=== PATIENT | female | born 1950 | race Caucasian/White ===

== ENCOUNTER 2022-06-22 06:03 | Day surgery (SDC) | payer OTHER, SELFPAY ==
[2022-06-22] VITALS (25 sets, daily range): BP systolic 106–147; BP diastolic 62–115; PULSE 49–94; RESP 14–18; TEMP 35.5–36.7; O2SAT 93–99; BMI 27.3
[2022-06-22] MEDS: ACETAMINOPHEN 500 MG TABLET 1000 MG PO ×3 (06:23→18:53)
[2022-06-22] MEDS: CELECOXIB 200 MG CAPSULE PO ×2 (06:23→21:44)
[2022-06-22] MEDS: OXYCODONE (CR) 10 MG TAB.ER.12H PO (06:23)
[2022-06-22] MEDS: SODIUM CHLORIDE 0.9 % (FLUSH) 10 ML SYRINGE IVF (06:37)
[2022-06-22] MEDS: LACTATED RINGERS 1000 ML 1,000 ML 100 ML IV (06:37)
[2022-06-22] MEDS: MIDAZOLAM HCL 1 MG/ML inj IVP (07:10)
[2022-06-22] MEDS: fentaNYL 100 MCG/2 ML inj IVP (07:10)
--- NOTE | 2022-06-22 07:19 | P.NB_ITS ---
Nerve Block Nerve Block Time Seen by Provider: 07:20 Date Seen: 06/22/22 Type of block requested by surgeon for post-operative analgesia: geniculars Side: right Time out performed: Yes Verification of patient name: Yes Verification of date of : Yes Site marking: site marked Name of person performing procedure: Mat Continuous monitoring Was continuous monitoring of O2 sat, B/P, school lunch monitor, recorded every 15 minutes?: Yes Procedure Checklist: sterile prep, needles and gloves Medications given in 5ml increments after negative aspiration: Ropivicaine %: 0.5 mL: 9 Needle gauge: 25 Patient tolerated procedure well: Yes Block Charges Block Charge (with Pro Fee): Genicular Nerve Block Use of Ultrasound Machine for Block: No
--- NOTE | 2022-06-22 07:19 | W.PM.NB ---
Nerve Block Nerve Block Time Seen by Provider: 07:19 Date Seen: 06/22/22 Type of block requested by surgeon for post-operative analgesia: adductor canal Side: right Time out performed: Yes Verification of patient name: Yes Verification of date of : Yes Site marking: site marked Name of person performing procedure: Mat Continuous monitoring Was continuous monitoring of O2 sat, B/P, residential monitor, recorded every 15 minutes?: Yes Procedure Checklist: sterile prep, needles and gloves Ultrasound guided. Images saved: Yes Medications given in 5ml increments after negative aspiration: Ropivicaine %: 0.5 mL: 20 Needle gauge: 20 Decadron (mg): 10 Precedex (mcg): 25 Patient tolerated procedure well: Yes Additional comments: Needle noted adjacent to nerve Block Charges Block Charge (with Pro Fee): Femoral Nerve Use of Ultrasound Machine for Block: Yes- US Guidance/pain block
--- NOTE | 2022-06-22 07:20 | SUR.PREOP ---
TIME?OUT:?0708 PT/Khushboo MADRID RN/Jeremiah GODOY MDA?VERIFICATION?OF?SURGICAL?SITE,?PROCEDURE,?AND?CONSENT OBTAINED?PRIOR?TO?INVASIVE?PROCEDURE.
[2022-06-22] MEDS: CEFAZOLIN 2 GM in 0.9 % SODIUM CHLORIDE Mini-bag 100 ML IVPB ×3 (07:50→21:45)
[2022-06-22] MEDS: TRANEXAMIC ACID 100 MG/ML INJ 1000 MG IV (07:50)
--- NOTE | 2022-06-22 07:52 | CRLHL7_ITS ---
For Patients: As a result of the Cures Act, medical imaging exams and procedure reports are released immediately into your electronic medical record. You may view this report before your referring provider. If you have questions, please contact your health care provider. Indication: Postop Technique: Two views right knee Comparison: No comparison Findings : Right knee total arthroplasty in satisfactory position. Postoperative soft tissue swelling and gas. Normal alignment. Dictated by Maria G Laboy MD @ 06/22/2022 11:37:24 AM (Electronically Signed)
--- NOTE | 2022-06-22 09:26 | PM.ORPRC ---
Procedure Note Date of procedure: 06/22/22 Procedure: PREOPERATIVE DIAGNOSIS: 1. Right knee osteoarthritis, primary, severe POSTOPERATIVE DIAGNOSIS: 1. Right knee osteoarthritis, primary, severe PROCEDURE: 1. Right total knee arthroplasty SURGEON: Shahab Pandya MD. HELP DESK TECHNICIAN: Robi Mcneal PA-C - Of note, a skilled judicial administrative assistant was critical for this case to aid in patient positioning, tissue retraction, limb manipulation/positioning, and closure. ANESTHESIA: Spinal anesthetic IMPLANTS: DePuy J&J all cemented TKA - Attune PS femur size 6 standard, size 6 tibia, 5 poly spacer, 35 mm patella TOURNIQUET: 90 min at 300 torr EBL: 50 ml COMPLICATIONS: None evident INDICATIONS: The patient is a pleasant 72-year-old female who has experienced severe right knee pain and difficulty bearing weight. Workup included x-rays which revealed severe osteoarthrosis in the knee. Given the deformity, the dysfunction, and the pain, as well as the failure of nonoperative management, recommendation was made for surgery. FINDINGS: Moderate effusion plan the 3rd joint. Full-thickness chondral loss lateral compartment and patellofemoral compartment. Significant chondromalacia medial compartment as well. Degenerative meniscus pathology both compartments. Multiple large loose bodies were also removed (the greatest measuring 35 mm in its greatest length and was severe call). DESCRIPTION OF PROCEDURE: Following a thorough discussion of risks, benefits, and alternatives consent was obtained and the right knee was marked. The patient was brought to the operating room and placed supine on the operating table. Induction of anesthesia was undertaken. 2 g IV Ancef and 1 g tranexamic acid was administered within 1 hr of incision preoperatively. Proper time-out was performed identifying proper patient, site, procedure. The operative extremity was prepped and draped in the appropriate sterile fashion using ChloraPrep after the patient was positioned supine with all bony prominences well padded. A longitudinal, anterior, midline skin incision was made starting approximately 3cm proximal to the superior pole of the patella and advanced distal to the tibial tubercle. A median parapatellar arthrotomy was created. A medial subperiosteal sleeve was created with knife, paul elevator and curved osteotome. The retropatellar fatpad was resected and the synovium in the suprapatellar pouch excised to visualize the anterior femoral cortex. Femoral preparation was performed via an intramedullary guide. Step drill allowed access into the femoral canal. The distal cutting guide was placed with 6 ? of valgus and 12 mm cut on the distal femur due to 20 degree flexion contracture. Femur was sized using a posterior referencing guide in 3? of external rotation which matched posterior condylar axis, epicondylar axis, and Whitesides line. This found have a best fit with the sizing noted above. The 4 in 1 cutting block was then placed, and the distal femur shaped accordingly. The box cut was then created and the trial implant inserted to confirm appropriate fit. We turned our attention to the proximal tibia. Extramedullary guide was utilized for cutting with the goal of being 90 degree cut from the mechanical axis of the tibia in the varus/valgus plane utilizing tibial crest as the primary alignment. Initially a 2 mm resection was performed from the medial tibial plateau. Ultimately, balancing was achieved in both flexion and extension in both varus and valgus. The knee was able to achieve full extension as well comfortably. The patella was initially measured and found have a thickness of 23 mm. It was resected back to approximately 15 mm. It was sized to be a best fit with as noted above. This was drilled, trial placed. All trials were placed and found to have an excellent stability and balance. At this stage, trial implants were removed, the knee was thoroughly irrigated with normal saline, and the cement was mixed. After irrigation, the knee was thoroughly dried, and cement placed, with the real tibial and femoral implants placed along with the patella. Trial poly spacer was placed and confirmed to have excellent range of motion and full extension, and the real poly spacer opened and inserted. All extra cement was removed, and a 3 min Betadine soak performed. Finally, a final irrigation round with normal saline was performed. Closure performed with 0 Vicryl and #0 Stratafix for the quad tendon/retinaculum. 2-0 Vicryl for the subcutaneous and 4-0 Stratafix for subcuticular closure. Dressings were applied and the patient was awoken from anesthesia after the tourniquet deflated and transferred the PACU in stable condition. A skilled judicial administrative assistant was critical for this case to aid in patient positioning, tissue retraction, bone exposure, limb manipulation/positioning, patient safety, and closure. PLAN: 1. Weight bear as tolerated operative extremity. 2. 23 hr perioperative antibiotics. 3. Ice. 4. PT/OT consults for ambulation assistance/mobility education. 5. Social work consult for discharge planning. 6. DVT prophylaxis with at SCDs, Best Hose, and aspirin twice daily.
--- NOTE | 2022-06-22 10:15 | W.ANESCHARGE ---
Anesthesia Charges Start Date/Time Anesthesia Start Date: 06/22/22 Anesthesia Start Time: 07:29 Stop Date/Time Anesthesia Stop Date: 06/22/22 Anesthesia Stop Time: 10:15 Summary Emergency: No Extremes of Age: Over 70-CPT 06128
--- NOTE | 2022-06-22 10:48 | W.ANESCHARGE ---
Anesthesia Charges Start Date/Time Anesthesia Start Date: 06/22/22 Anesthesia Start Time: 07:29 Stop Date/Time Anesthesia Stop Date: 06/22/22 Anesthesia Stop Time: 10:15 Summary Emergency: No Extremes of Age: Over 69-CPT 16214
--- NOTE | 2022-06-22 11:04 | PM.IMCN1 ---
Date of Consult Patient: Magi Patient Consult date: 06/22/22 Requesting Physician: Orthopedics Primary Care Provider: Elizabeth Hennessy MD Consult Narrative Reason for consult: Medical management of comorbidities Narrative: Franny Thapa is a 72 year old female who presented to the hospital today for an elective right TKA. There were no complications during procedure and she tolerated anesthesia well. She has no concerns for the hospitalist staff. Preoperative exam performed with PCP, Dr. Hennessy, on 06/10/2022 and reviewed. Patient's past medical history includes hypertension, hyperlipidemia, CKD, and [id number] DM2. She is not taking any medications for her diabetes. Her most recent A1c was 7.1 (May 2022). She endorses a blood clot behind the knee remotely when saw was on OCPs (unclear if this was a DVT or superficial thrombophlebitis). She has not had any blood clots since, was anticoagulated with aspirin after her right DANIEL in 2020. 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 She lives independently with her in [place]. Their house is multilevel, but she is able to limit steps if needed. She is a nonsmoker, rare alcohol drinker, and has received four COVID vaccines. [facility] Medical History (Updated 06/22/22 @ 11:25 by Natalie Zuñiga MD) Back problem GERD (gastroesophageal reflux disease) Gout History of gout Hyperlipidemia Hypertension Hyposmia Osteoarthritis Primary osteoarthritis of right knee Stage 3a chronic kidney disease Type 2 diabetes mellitus, without long-term current use of insulin Surgical History (Updated 06/22/22 @ 11:19 by Natalie Zuñiga MD) History of lumbar discectomy History of total left knee replacement History of total right hip arthroplasty (10/22/20) History of vaginal hysterectomy Family History (Updated 06/16/22 @ 11:32 by Laisha Ballard RN) Father Cancer Pancreatic cancer Mother Dementia Sister Thyroid cancer Social History Smoking Status: Never smoker Do you use any of these nicotine containing products: None How often do you have a drink containing alcohol: 2-3 times a week Alcohol type: hard liquor How many standard drinks containing alcohol do you have on a typical day: 1 or 2 How often do you have six or more drinks on one occasion: Never AUDIT-C Alcohol total score: 3 Non-prescribed substance use: denies use Caffeine: Yes (iced coffee 1/morning) Meds Home Medications and Allergies Home Medications Medication Instructions Recorded Confirmed Type allopurinol 300 mg tablet 300 mg PO DAILY 06/19/22 06/22/22 History atorvastatin 40 mg tablet (Lipitor) 40 mg PO QHS 06/19/22 06/22/22 History calcium carbonate 600 mg-vitamin 1 tab PO DAILY 06/19/22 06/22/22 History D3 20 mcg (800 unit) chewable tablet (Caltrate 600 plus D) hydrochlorothiazide 12.5 mg tablet 12.5 mg PO DAILY 06/19/22 06/22/22 History lisinopril 2.5 mg tablet 2.5 mg PO DAILY 06/19/22 06/22/22 History loratadine 10 mg tablet (Claritin) 10 mg PO DAILY 06/19/22 06/22/22 History aspirin 81 mg tablet,delayed 81 mg PO DAILY 06/22/22 06/22/22 History release (Adult Low Dose Aspirin) Allergies Allergy/AdvReac Type Severity Reaction Status Date / Time nitrofurantoin Allergy Nausea Verified 06/22/22 06:15 [From Macrobid] metformin Allergy Unknown Uncoded 05/07/22 10:15 Exam Narrative: Exam Narrative: GEN: Alert and oriented, laying comfortably in bed and answering questions appropriately HEENT: Normal external ears, EOMIs bilaterally, no scleral icterus CV: RRR, No concerning murmurs, rubs, or gallops R: LCTA bilaterally without concerning wheezing, rales, or rhonchi Ext: wwp, no concerning edema, wearing Best hose bilaterally Skin: No concerning skin lesions or rashes on exposed skin Neuro: Nonfocal Psych: Appropriate Const: Vital Signs, click to edit/add: Vital Signs - 24 hr 06/22/22 06:35 06/22/22 07:12 06/22/22 07:15 Temperature 98.1 F Pulse Rate 73 68 70 Respiratory Rate 16 16 14 Blood Pressure 138/82 147/115 H 144/92 H Pulse Oximetry 97 98 97 Oxygen Delivery Me thod Room Air Nasal Cannula Nasal Cannula Oxygen Flow Rate 2 2 06/22/22 10:15 06/22/22 10:20 06/22/22 10:40 Temperature 97.2 F L Pulse Rate 70 73 72 Respiratory Rate 16 16 16 Blood Pressure 106/71 107/62 129/87 Pulse Oximetry 95 94 95 Oxygen Delivery Me thod Room Air Room Air Room Air Oxygen Flow Rate 06/22/22 10:30 06/22/22 10:25 06/22/22 10:35 Temperature Pulse Rate 70 71 67 Respiratory Rate 16 16 16 Blood Pressure 109/83 116/75 119/78 Pulse Oximetry 94 94 95 Oxygen Delivery Me thod Room Air Room Air Room Air Oxygen Flow Rate 06/22/22 10:45 06/22/22 10:59 Temperature 96.7 F L Pulse Rate 71 74 Respiratory Rate 16 16 Blood Pressure 129/86 128/80 Pulse Oximetry 95 95 Oxygen Delivery Me thod Room Air Room Air Oxygen Flow Rate Assessment and Plan Assessment and plan (1) Total knee replacement status: Status: Acute (2) Osteoarthritis of right knee: Problem comment: Severe Status: Acute (3) Type 2 diabetes mellitus, without long-term current use of insulin: Status: Acute Assessment and Plan: Accu-Cheks and diabetic diet. (4) Stage 3a chronic kidney disease: Status: Acute (5) Hypertension: Status: Acute (6) History of blood clots: Problem comment: One blood clot remotely while on OCPs, unclear if DVT or superficial. Status: Acute Assessment and Plan: Presumably a DVT, provoked. Patient did well postoperatively after DANIEL in 2020 with aspirin as prophylaxis. Aspirin postoperatively for TKA. Plan - Continue home medications (hold HCTZ tomorrow morning, will restart if lytes and BP stable) - pain management and prophylaxis per orthopedic surgery team (see above re: History of DVT) - anticipate routine postoperative cares at home tomorrow with . Hospitalist team will continue to follow along given above-mentioned comorbidities
--- NOTE | 2022-06-22 14:09 | PC.NURSE ---
Patient received to room at 1050 AM accompanied by two nurses from recovery unit. Patient was conscious on arrival. Dressing appeared dry and clean. V/S checked and recorded as per chart. Denied any pain. Confirmed loss of sensation to the right leg but able to move toes. IV Ringers lactate 1000ml set up. Warm blanket given to keep pt warm and icepack applied to the right knee. Ice cubes given intermittently to moist the moist. Head of bed elevated. Pt was in patient's room and reported that patient vomited twice during physical therapy.
[2022-06-22] MEDS: ONDANSETRON 2 MG/ML inj 4 MG IVP ×2 (14:50→18:52)
[2022-06-22] MEDS: LACTATED RINGERS 1000 ML 1,000 ML 75 ML IV (14:50)
[2022-06-22] MEDS: HYDROmorphone 0.5 mg/0.5 ml inj IVP (15:05)
[2022-06-22] MEDS: OXYCODONE 5 MG TABLET PO ×2 (16:49→19:50)
--- NOTE | 2022-06-22 20:31 | PC.NURSE ---
Patient up to floor at 1050. Awake and alert. reports nausea with previous surgeries. Zofran given. shortly after dilaudid given for pn. - 200cc bile emesis. Pt slowly advanced diet with crackers and jello. IV infiltrated to left wrist. New IV placed to left AC. Oxy 10mg for pain and had some emesis after this as well. Zofran given a second time. in between these episodes, pt happy and talkative, denied issues and reported sudden onset after narcs. up to void this evening. LS CTA. cry cuff on. surgical dressing CDI.
[2022-06-22] MEDS: ATORVASTATIN CALCIUM 40 MG TABLET PO (21:44)
[2022-06-22] MEDS: ASPIRIN 81 MG TABLET EC PO (21:45)
[2022-06-23] MEDS: ACETAMINOPHEN 500 MG TABLET 1000 MG PO ×2 (00:22→06:34)
[2022-06-23] MEDS: ONDANSETRON 2 MG/ML inj 4 MG IVP ×2 (00:25→08:17)
[2022-06-23 02:58] VITALS: BP 139/82; PULSE 85; RESP 18; TEMP 36.4; O2SAT 98
[2022-06-23] MEDS: CEFAZOLIN 2 GM in 0.9 % SODIUM CHLORIDE Mini-bag 100 ML IVPB (06:04)
[2022-06-23 06:47] LABS: Basophils Percent Auto 0.1 % (0.0-3.0); Hematocrit 33.6 % (33.0-51.0); Hemoglobin* 11.1 gm/dL (12.0-16.0); Mean Corpuscular HGB Conc 33 gm/dL (32-36); Mean Corpuscular Hemoglobin 31 pg (26-34); Mean Corpuscular Volume 93 fL (80-100); Monocytes Percent Auto 7.1 % (0.0-11.0); Neutrophils Percent Auto 80.9 % (42.0-72.0); Platelet Count* 244 K/uL (140-440); RDW Coefficient of Variation % 13.5 % (11.5-15.5); Red Blood Count 3.62 m/uL (4.00-5.20); White Blood Count* 11.42 K/uL (4.50-11.00)
[2022-06-23 06:55] LABS: Slide Review Reflex No
[2022-06-23 07:00] VITALS: BP 113/71; PULSE 75; RESP 18; TEMP 36.6; O2SAT 96
[2022-06-23 07:05] LABS: Sodium* 133 mmol/L (135-149)
[2022-06-23 07:06] LABS: Potassium* 4.1 mmol/L (3.6-5.1)
[2022-06-23 07:08] LABS: Creatinine* 0.9 mg/dL (0.5-1.5); Est. Creatinine Clearance* 50.54; Estimated Glomerular Filt Rate 68 ml/min
[2022-06-23 07:09] LABS: Blood Urea Nitrogen* 33 mg/dL (7-30)
--- NOTE | 2022-06-23 08:29 | PM.ORPN ---
Subjective Subjective Date Seen: 06/23/22 Principal diagnosis: Status postop day 1 right total knee arthroplasty Interval history: Patient reports doing well. Acute events postoperative and overnight include nausea and vomiting, which she says is typical for her after anesthesia. That nausea is improving. She will try breakfast this morning. Pain managed with scheduled /PRN medications and ice. DVT prophylaxis 81 mg aspirin by mouth twice daily, bilateral knee high Best stockings, and SCDs. Denies fevers, chills, aches, CP, SOB/GARY, tachycardia, or lightheadedness. Ortho Exam Narrative Exam Narrative: -Patient appears comfortable; no apparent acute distress -Alert and oriented times 3 -Operative knee mildly swollen; soft tissues supple; no ecchymosis; no erythematous streaking Warmth appropriate -Surgical dressing clean, dry, intact; no drainage -Bilateral calfs soft; no significant swelling, edema, tenderness, erythema, discoloration, warmth, or palpable cords -2+ DP/PT pulses, intact dermatomes and myotomes distally (5/5 strength) Const Vital Signs, click to edit/add: Vital Signs - 24 hr 06/22/22 10:15 06/22/22 10:20 06/22/22 10:40 Temperature 97.2 F L Pulse Rate 70 73 72 Pulse Rate [Pulse Oximeter] Respiratory Rate 16 16 16 Blood Pressure 106/71 107/62 129/87 Blood Pressure [Right Arm] Pulse Oximetry 95 94 95 Oxygen Delivery Method Room Air Room Air Room Air Oxygen Flow Rate 06/22/22 10:30 06/22/22 10:25 06/22/22 10:35 Temperature Pulse Rate 70 71 67 Pulse Rate [Pulse Oximeter] Respiratory Rate 16 16 16 Blood Pressure 109/83 116/75 119/78 Blood Pressure [Right Arm] Pulse Oximetry 94 94 95 Oxygen Delivery Method Room Air Room Air Room Air Oxygen Flow Rate 06/22/22 10:45 06/22/22 10:59 06/22/22 11:04 Temperature 96.7 F L 97 F L Pulse Rate 71 74 Pulse Rate [Pulse Oximeter] Respiratory Rate 16 16 16 Blood Pressure 129/86 128/80 Blood Pressure [Right Arm] 122/102 H Pulse Oximetry 95 95 97 Oxygen Delivery Method Room Air Room Air Room Air Oxygen Flow Rate 06/22/22 11:45 06/22/22 11:10 06/22/22 11:30 Temperature 97.1 F L 96.9 F L 96.9 F L Pulse Rate Pulse Rate [Pulse Oximeter] 94 Respiratory Rate 16 16 16 Blood Pressure Blood Pressure [Right Arm] 116/76 120/78 112/77 Pulse Oximetry 95 96 97 Oxygen Delivery Method Room Air Room Air Room Air Oxygen Flow Rate 06/22/22 12:00 06/22/22 12:30 06/22/22 13:30 Temperature 97.2 F L 96.7 F L 95.9 F L Pulse Rate Pulse Rate [Pulse Oximeter] 67 62 49 L Respiratory Rate 16 16 16 Blood Pressure Blood Pressure [Right Arm] 110/82 119/84 125/74 Pulse Oximetry 96 99 96 Oxygen Delivery Method Room Air Room Air Room Air Oxygen Flow Rate 06/22/22 14:30 06/22/22 15:00 06/22/22 15:30 Temperature 95.9 F L 96.7 F L Pulse Rate Pulse Rate [Pulse Oximeter] 75 79 Respiratory Rate 16 18 18 Blood Pressure Blood Pressure [Right Arm] 121/99 H 140/85 H Pulse Oximetry 97 94 Oxygen Delivery Method Room Air Room Air Oxygen Flow Rate 0 06/22/22 19:00 06/22/22 16:30 06/22/22 22:41 Temperature 97.9 F 97.9 F Pulse Rate Pulse Rate [Pulse Oximeter] 81 81 Respiratory Rate 18 18 18 Blood Pressure Blood Pressure [Right Arm] 140/81 H 137/87 Pulse Oximetry 97 93 Oxygen Delivery Method Room Air Room Air Oxygen Flow Rate 0 06/22/22 23:00 06/23/22 02:58 Temperature 97.8 F 97.6 F Pulse Rate Pulse Rate [Pulse Oximeter] 81 85 Respiratory Rate 18 18 Blood Pressure Blood Pressure [Right Arm] 127/74 139/82 Pulse Oximetry 96 98 Oxygen Delivery Method Room Air Room Air Oxygen Flow Rate Assessment and Plan Assessment and plan (1) Total knee replacement status: Problem details: POD 1 right total knee arthroplasty Status: Acute (2) Osteoarthritis of right knee: Problem details: Severe Status: Acute (3) Type 2 diabetes mellitus, without long-term current use of insulin: Status: Acute (4) Stage 3a chronic kidney disease: Status: Acute (5) Hypertension: Status: Acute (6) History of blood clots: Problem details: One blood clot remotely while on OCPs, unclear if DVT or superficial. Was placed on ASA for her last knee replacement. Status: Acute Plan - Complete 23 hour perioperative antibiotics. - PT/OT consult for education and assistance. - Social work consult for discharge planning - Prescribed analgesics as needed - DVT prophylaxis: 81 mg aspirin by mouth twice daily, bilateral knee high Best Hose stockings and SCDs - Anticipation is for discharge to home 06/23/2022 once the patient remains medically stable, pain is controlled, and they are safe with mobilization.
--- NOTE | 2022-06-23 08:35 | P.DS_ITS ---
DS: Providers Provider Date Seen: 06/23/22 Date of admission: med/surg recovery 06/22/22 Primary care physician: Elizabeth Hennessy MD Consults: 06/22/22 10:57 Consult to Occupational Therapy [CONS] Routine Comment: Reason(s) for OT Consult:: ADLs Prior to Discharge Any Restrictions?:: See Comment Comment: See nursing activity order for any restrictions. Consult to Physical Therapy [CONS] Routine Comment: Ambulate in the arellano today. Reason(s) for PT Consult:: TKA TX Protocol POD#0 Any Restrictions?:: See Comment Comment: See nursing activity order for any restrictions. Consult to Physician [CONS] Routine Comment: Consulting Provider: Hospitalists Has provider been notified: No Consult to Civil Cadd Technician [CONS] Routine Comment: Reason for Consult:: Discharge Planning Needs Attending Physician on discharge: Shahab Pandya MD Date of Discharge: 06/23/22 DS: Diagnosis Discharge Diagnosis (1) Total knee replacement status: Status: Acute (2) Osteoarthritis of right knee: Status: Acute Problem details: Severe DS: Summary Hospital Course Hospital Course: The patient has a history of right knee osteoarthritis, primary, severe. After appropriate preoperative evaluation, the patient underwent right total knee arthroplasty. Postoperatively given anticoagulation for deep vein thrombosis prophylaxis, 81 mg aspirin by mouth twice daily.. They progressed to PT/OT and were felt ready and prepared for discharge to home with appropriate pain medication and anticoagulation medications. Status at Discharge Functional status at discharge: uses cane/walker Overall status at discharge: patient is progressing back to baseline Time Spent with Patient Time attestation: Total time spent providing and/or coordinating discharge services: Time spent: Less than 30 minutes Exam Const: Vital Signs, click to edit/add: Vital Signs - 24 hr 06/22/22 10:15 06/22/22 10:20 06/22/22 10:40 Temperature 97.2 F L Pulse Rate 70 73 72 Pulse Rate [Pulse Oximeter] Respiratory Rate 16 16 16 Blood Pressure 106/71 107/62 129/87 Blood Pressure [Ri ght Arm] Pulse Oximetry 95 94 95 Oxygen Delivery Me thod Room Air Room Air Room Air Oxygen Flow Rate 06/22/22 10:30 06/22/22 10:25 06/22/22 10:35 Temperature Pulse Rate 70 71 67 Pulse Rate [Pulse Oximeter] Respiratory Rate 16 16 16 Blood Pressure 109/83 116/75 119/78 Blood Pressure [Ri ght Arm] Pulse Oximetry 94 94 95 Oxygen Delivery Me thod Room Air Room Air Room Air Oxygen Flow Rate 06/22/22 10:45 06/22/22 10:59 06/22/22 11:04 Temperature 96.7 F L 97 F L Pulse Rate 71 74 Pulse Rate [Pulse Oximeter] Respiratory Rate 16 16 16 Blood Pressure 129/86 128/80 Blood Pressure [Ri ght Arm] 122/102 H Pulse Oximetry 95 95 97 Oxygen Delivery Me thod Room Air Room Air Room Air Oxygen Flow Rate 06/22/22 11:45 06/22/22 11:10 06/22/22 11:30 Temperature 97.1 F L 96.9 F L 96.9 F L Pulse Rate Pulse Rate [Pulse Oximeter] 94 Respiratory Rate 16 16 16 Blood Pressure Blood Pressure [Ri ght Arm] 116/76 120/78 112/77 Pulse Oximetry 95 96 97 Oxygen Delivery Me thod Room Air Room Air Room Air Oxygen Flow Rate 06/22/22 12:00 06/22/22 12:30 06/22/22 13:30 Temperature 97.2 F L 96.7 F L 95.9 F L Pulse Rate Pulse Rate [Pulse Oximeter] 67 62 49 L Respiratory Rate 16 16 16 Blood Pressure Blood Pressure [Ri ght Arm] 110/82 119/84 125/74 Pulse Oximetry 96 99 96 Oxygen Delivery Me thod Room Air Room Air Room Air Oxygen Flow Rate 06/22/22 14:30 06/22/22 15:00 06/22/22 15:30 Temperature 95.9 F L 96.7 F L Pulse Rate Pulse Rate [Pulse Oximeter] 75 79 Respiratory Rate 16 18 18 Blood Pressure Blood Pressure [Ri ght Arm] 121/99 H 140/85 H Pulse Oximetry 97 94 Oxygen Delivery Me thod Room Air Room Air Oxygen Flow Rate 0 06/22/22 19:00 06/22/22 16:30 06/22/22 22:41 Temperature 97.9 F 97.9 F Pulse Rate Pulse Rate [Pulse Oximeter] 81 81 Respiratory Rate 18 18 18 Blood Pressure Blood Pressure [Ri ght Arm] 140/81 H 137/87 Pulse Oximetry 97 93 Oxygen Delivery Me thod Room Air Room Air Oxygen Flow Rate 0 06/22/22 23:00 06/23/22 02:58 06/23/22 07:00 Temperature 97.8 F 97.6 F 97.9 F Pulse Rate Pulse Rate [Pulse Oximeter] 81 85 75 Respiratory Rate 18 18 18 Blood Pressure Blood Pressure [Ri ght Arm] 127/74 139/82 113/71 Pulse Oximetry 96 98 96 Oxygen Delivery Me thod Room Air Room Air Room Air Oxygen Flow Rate 0 06/23/22 07:00 Temperature Pulse Rate Pulse Rate [Pulse Oximeter] 75 Respiratory Rate 18 Blood Pressure Blood Pressure [Ri t Arm] Pulse Oximetry Oxygen Delivery Me thod Oxygen Flow Rate DS: Data Data Completed and Pending Labs on day of discharge: Labs from last 24 hours 06/23/22 06/23/22 06:01 06:01 WBC 11.42 H RBC 3.62 L Hgb 11.1 L Hct 33.6 MCV 93 MCH 31 MCHC 33 RDW Coeff of Nico 13.5 Plt Count 244 Neut % (Auto) 80.9 H Lymph % (Auto) 11.0 L [place] % (Auto) 7.1 Eos % (Auto) 0.0 Baso % (Auto) 0.1 Neut # (Auto) 9.20 H Lymph # (Auto) 1.30 [place] # (Auto) 0.80 Eos # (Auto) 0.00 Baso # (Auto) 0.00 Abs Immat Gran (auto) 0.10 Sodium 133 L Potassium 4.1 BUN 33 H Creatinine 0.9 Estimated Creat Clear 50.54 Estimated GFR 68 Discharge Plan Discharge Disposition: Home, Self-Care Discharging Surgeon: Shahab Pandya Follow-Up Appointment: 1 week follow up with [facility] Prescriptions: New sennosides-docusate sodium [Senna-S] 8.6-50 mg tablet 1 - 4 tab-cap PO BID PRN (Reason: constipation) Qty: 60 0RF Rx Instructions: Hold medication if experiencing loose stools. aspirin 81 mg tablet,delayed release (DR/EC) 81 mg PO BID Qty: 60 0RF Rx Instructions: Medication to help prevent blood clots postoperatively; take TWICE daily. celecoxib 100 mg capsule 100 mg PO BID Qty: 60 0RF acetaminophen 500 mg capsule 500 - 1,000 mg PO Q6H MDD 4000mg PRNQty: 100 0RF oxycodone 5 mg tablet 2.5 - 5 mg PO Q4-6H MDD 6 PRN (Reason: pain) Qty: 42 0RF Rx Instructions: Take as needed for postop pain: 2.5mg mild pain, 5mg moderate-severe pain; wean as tolerated. No Action allopurinol 300 mg tablet 300 mg PO DAILY atorvastatin [Lipitor] 40 mg tablet 40 mg PO QHS Caltrate 600 plus D 600 mg-20 mcg (800 unit) tablet,chewable 1 tab PO DAILY hydrochlorothiazide 12.5 mg tablet 12.5 mg PO DAILY lisinopril 2.5 mg tablet 2.5 mg PO DAILY loratadine [Claritin] 10 mg tablet 10 mg PO DAILY aspirin [Adult Low Dose Aspirin] 81 mg tablet,delayed release (DR/EC) 81 mg PO DAILY Activity Level: Activity as Tolerated, Weight Bearing as Tolerated, Use Cane and Use Walker Activity Detail: Wound: ?Do not remove original dressing; we will remove this at first postop visit in 1 week. Only remove dressing if integrity is in question. ?No immersing wound in water; showering okay; light scrub with your hand and body soap, rinse, dab dry ?Sutures are under the skin, will dissolve; allow surgical glue to come off naturally; do not scrub the wound or apply ointments/lotions ?Call our office with any redness that streaks, excessive drainage from the wound, or wound gapping. Ice/Elevate: ?Ice as needed for swelling and discomfort (cryocuff or ice pack); elevate frequently above the heart CHERYL socks: ?Wear for 1 month, remove for 1 hour 3 times per day ?These are frustrating to take on/off, but are important for blood clot prevention for 1 month after surgery Blood Clot Prevention (DVT): ?Medication: 81 mg aspirin by mouth twice daily (1 month) Driving: ?Do not drive while taking narcotic pain medication ?Anticipate 4-6 weeks no driving if operative leg is driving leg Dental: ?No elective dental work for 6 months post-op. If there is an urgent/emergent dental need, contact our office for an antibiotic prescription. Smoking/Alcohol: ?Do not smoke; do no drink alcohol especially when taking postoperative oral narcotic medication Seek Care from you Primary Care Provider if you experience the following issues in the postoperative phase and beyond: ?Bacterial infections such as: pneumonia, bacterial skin infection (cellulitis), UTI, high fever, chills unrelated to the operative body part - call your primary care physician urgently for treatment in hopes to protect your health and the metal implant. Referrals: ?PT, OT per patient preference - evaluate treat total knee arthroplasty protocol (gait training, ROM, ADLs) Follow up: ?Ortho surgeon follow-up in 6 weeks; repeat radiographs three views operative knee ?PA-C visit in 1 week *If there are any acute concerns regarding your surgery, please call our orthopedic clinic ([phone]) Discharge Diet: Diabetic Diet Detail: Progress as tolerated Patient Instructions: Surgical Site Infections (DC) Forms: Work/Release Restrictions Follow-up: Elizabeth Hennessy MD [Primary Care Provider] - Discharge Orders: Discharge Order (Routine); Ordered 06/23/22 Ordered By: Robi Mcneal
[2022-06-23] MEDS: OXYCODONE 5 MG TABLET PO ×2 (08:55→12:10)
[2022-06-23] MEDS: SENNOSIDES 1 TAB TABLET 2 TAB PO (08:55)
[2022-06-23] MEDS: CELECOXIB 200 MG CAPSULE PO (08:55)
[2022-06-23] MEDS: allopurinoL 300 MG TABLET PO (08:56)
[2022-06-23] MEDS: lisinopriL 5 MG TABLET 2.5 MG PO (08:56)
[2022-06-23] MEDS: ASPIRIN 81 MG TABLET EC PO (08:56)
[2022-06-23] MEDS: LORATADINE 10 MG TABLET PO (08:56)
--- NOTE | 2022-06-23 10:47 | PC.SOCIAL ---
Met with pt. to discuss discharge plans. Pt. has a 4 story home but plans to stay on the main level with family room, bedroom, and bath all on one level with 6 stairs to enter. Pt. states her spouse is in good health and will assist as needed at home. Pt. does not feel she will need additional resources for discharge but is aware she can contact foster care social worker if she needs additional resources for discharge.
--- NOTE | 2022-06-23 11:01 | P.DS_ITS ---
DS: Providers Provider Date Seen: 06/23/22 Primary care physician: Elizabeth Hennessy MD Admitting Clinician: Dr. Martínez Consults: Physical and Occupational Therapy Hospitalist team for management of comorbidities Attending Physician on discharge: Shahab Pandya MD Date of Discharge: 06/23/22 DS: Diagnosis Discharge Diagnosis (1) Total knee replacement status: Status: Acute (2) Osteoarthritis of right knee: Status: Acute Problem details: Severe (3) History of blood clots: Status: Acute Problem details: One blood clot remotely while on OCPs, unclear if DVT or superficial. Was placed on ASA for her last knee replacement. (4) Type 2 diabetes mellitus, without long-term current use of insulin: Status: Acute (5) Hypertension: Status: Acute DS: Summary Hospital Course Hospital Course: Franny was admitted for an elective right TKA on 06/22. Patient did well postoperatively and comorbidities remained stable. No changes were made to home medications upon discharge (with the exception of doubling her aspirin dose). Prophylaxis and pain management per Orthopedic surgery team. Patient will be discharged home with routine follow-up with therapies, orthopedic surgery, and PCP. Time Spent with Patient Time attestation: Total time spent providing and/or coordinating discharge services: Time spent: Less than 30 minutes Exam Narrative: Exam Narrative: Patient is sitting comfortably in bedside chair, speaking in full sentences. She is breathing comfortably, no concerning skin findings on exposed skin. She is wearing Cheryl hose and no extremity abnormalities are noted. Const: Vital Signs, click to edit/add: Vital Signs - 24 hr 06/22/22 11:04 06/22/22 11:45 06/22/22 11:10 Temperature 97 F L 97.1 F L 96.9 F L Pulse Rate [Pulse Oximeter] 94 Respiratory Rate 16 16 16 Blood Pressure [Ri ght Arm] 122/102 H 116/76 120/78 Pulse Oximetry 97 95 96 Oxygen Delivery Me thod Room Air Room Air Room Air Oxygen Flow Rate 06/22/22 11:30 06/22/22 12:00 06/22/22 12:30 Temperature 96.9 F L 97.2 F L 96.7 F L Pulse Rate [Pulse Oximeter] 67 62 Respiratory Rate 16 16 16 Blood Pressure [Ri ght Arm] 112/77 110/82 119/84 Pulse Oximetry 97 96 99 Oxygen Delivery Me thod Room Air Room Air Room Air Oxygen Flow Rate 06/22/22 13:30 06/22/22 14:30 06/22/22 15:00 Temperature 95.9 F L 95.9 F L Pulse Rate [Pulse Oximeter] 49 L 75 Respiratory Rate 16 16 18 Blood Pressure [Ri ght Arm] 125/74 121/99 H Pulse Oximetry 96 97 Oxygen Delivery Me thod Room Air Room Air Oxygen Flow Rate 06/22/22 15:30 06/22/22 19:00 06/22/22 16:30 Temperature 96.7 F L 97.9 F 97.9 F Pulse Rate [Pulse Oximeter] 79 81 81 Respiratory Rate 18 18 18 Blood Pressure [Ri ght Arm] 140/85 H 140/81 H 137/87 Pulse Oximetry 94 97 93 Oxygen Delivery Me thod Room Air Room Air Room Air Oxygen Flow Rate 0 0 06/22/22 22:41 06/22/22 23:00 06/23/22 02:58 Temperature 97.8 F 97.6 F Pulse Rate [Pulse Oximeter] 81 85 Respiratory Rate 18 18 18 Blood Pressure [Ri ght Arm] 127/74 139/82 Pulse Oximetry 96 98 Oxygen Delivery Me thod Room Air Room Air Oxygen Flow Rate 06/23/22 07:00 06/23/22 07:00 Temperature 97.9 F Pulse Rate [Pulse Oximeter] 75 75 Respiratory Rate 18 18 Blood Pressure [Ri ght Arm] 113/71 Pulse Oximetry 96 Oxygen Delivery Me thod Room Air Oxygen Flow Rate 0 DS: Data Data Completed and Pending Labs on day of discharge: Labs from last 24 hours 06/23/22 06/23/22 06:01 06:01 WBC 11.42 H RBC 3.62 L Hgb 11.1 L Hct 33.6 MCV 93 MCH 31 MCHC 33 RDW Coeff of Nico 13.5 Plt Count 244 Neut % (Auto) 80.9 H Lymph % (Auto) 11.0 L [place] % (Auto) 7.1 Eos % (Auto) 0.0 Baso % (Auto) 0.1 Neut # (Auto) 9.20 H Lymph # (Auto) 1.30 [place] # (Auto) 0.80 Eos # (Auto) 0.00 Baso # (Auto) 0.00 Abs Immat Gran (auto) 0.10 Sodium 133 L Potassium 4.1 BUN 33 H Creatinine 0.9 Estimated Creat Clear 50.54 Estimated GFR 68 Discharge Plan Discharge Disposition: Home, Self-Care Discharging Surgeon: Shahab Pandya Follow-Up Appointment: 1 week follow up with [facility] Prescriptions: New sennosides-docusate sodium [Senna-S] 8.6-50 mg tablet 1 - 4 tab-cap PO BID PRN (Reason: constipation) Qty: 60 0RF Rx Instructions: Hold medication if experiencing loose stools. aspirin 81 mg tablet,delayed release (DR/EC) 81 mg PO BID Qty: 60 0RF Rx Instructions: Medication to help prevent blood clots postoperatively; take TWICE daily. celecoxib 100 mg capsule 100 mg PO BID Qty: 60 0RF acetaminophen 500 mg capsule 500 - 1,000 mg PO Q6H MDD 4000mg PRNQty: 100 0RF oxycodone 5 mg tablet 2.5 - 5 mg PO Q4-6H MDD 6 PRN (Reason: pain) Qty: 42 0RF Rx Instructions: Take as needed for postop pain: 2.5mg mild pain, 5mg moderate-severe pain; wean as tolerated. Continued allopurinol 300 mg tablet 300 mg PO DAILY atorvastatin [Lipitor] 40 mg tablet 40 mg PO QHS Caltrate 600 plus D 600 mg-20 mcg (800 unit) tablet,chewable 1 tab PO DAILY hydrochlorothiazide 12.5 mg tablet 12.5 mg PO DAILY lisinopril 2.5 mg tablet 2.5 mg PO DAILY loratadine [Claritin] 10 mg tablet 10 mg PO DAILY Discontinued aspirin [Adult Low Dose Aspirin] 81 mg tablet,delayed release (DR/EC) 81 mg PO DAILY Activity Level: Activity as Tolerated, Weight Bearing as Tolerated, Use Cane and Use Walker Activity Detail: Wound: ?Do not remove original dressing; we will remove this at first postop visit in 1 week. Only remove dressing if integrity is in question. ?No immersing wound in water; showering okay; light scrub with your hand and body soap, rinse, dab dry ?Sutures are under the skin, will dissolve; allow surgical glue to come off naturally; do not scrub the wound or apply ointments/lotions ?Call our office with any redness that streaks, excessive drainage from the wound, or wound gapping. Ice/Elevate: ?Ice as needed for swelling and discomfort (cryocuff or ice pack); elevate frequently above the heart CHERYL socks: ?Wear for 1 month, remove for 1 hour 3 times per day ?These are frustrating to take on/off, but are important for blood clot prevention for 1 month after surgery Blood Clot Prevention (DVT): ?Medication: 81 mg aspirin by mouth twice daily (1 month) Driving: ?Do not drive while taking narcotic pain medication ?Anticipate 4-6 weeks no driving if operative leg is driving leg Dental: ?No elective dental work for 6 months post-op. If there is an urgent/emergent dental need, contact our office for an antibiotic prescription. Smoking/Alcohol: ?Do not smoke; do no drink alcohol especially when taking postoperative oral narcotic medication Seek Care from you Primary Care Provider if you experience the following issues in the postoperative phase and beyond: ?Bacterial infections such as: pneumonia, bacterial skin infection (cellulitis), UTI, high fever, chills unrelated to the operative body part - call your primary care physician urgently for treatment in hopes to protect your health and the metal implant. Referrals: ?PT, OT per patient preference - evaluate treat total knee arthroplasty protocol (gait training, ROM, ADLs) Follow up: ?Ortho surgeon follow-up in 6 weeks; repeat radiographs three views operative knee ?PAOlvinC visit in 1 week *If there are any acute concerns regarding your surgery, please call our orthopedic clinic ([phone]) Discharge Diet: Diabetic Diet Detail: Progress as tolerated Patient Instructions: Acetaminophen (By mouth), Aspirin (By mouth), Oxycodone, Rapid Release (By mouth), Celecoxib (By mouth), Senna (By mouth), Knee Replacement (DC) Forms: Work/Release Restrictions Follow-up: Angela Richter PA-C [Physician Metal Furniture Assembly Supervisor] - 06/30/22 1:00 pm ([facility]. [phone]) Elizabeth Hennessy MD [Primary Care Provider] - Discharge Orders: Discharge Order (Routine); Ordered 06/23/22 Ordered By: Robi Mcneal
--- NOTE | 2022-06-23 14:27 | PC.NURSE ---
d/c instructions reviewed with patient. surgical dressing CDI. oxy given prior to d/c. pt denied any further questions. IV removed and belongings form reviewed and signed. pt d/c'd around 1130 from m/s floor.
== END 2022-06-23 11:30 | disposition home or self-care (01) ==
LOC: OR 06:04 → MEDSURG 06:08
PROVIDERS: PCP Family Medicine; Visit Provider Orthopaedic Surgery Sports Medicine
PROC: (CPT 27447; principal; 2022-06-22 07:30)
DX: M17.11 Unilateral primary osteoarthritis, right knee (principal); N18.31 Chronic kidney disease, stage 3a; I12.9 Hypertensive chronic kidney disease with stage 1 through stage 4 chronic kidney disease, or unspecified chronic kidney disease; E11.22 Type 2 diabetes mellitus with diabetic chronic kidney disease; Z86.718 Personal history of other venous thrombosis and embolism; E78.5 Hyperlipidemia, unspecified
CPT/HCPCS: 27447; 01402; 01480; 36415; 64447; 64454; 73560; 76942; 82565; 82947; 84132; 84295; 84520; 85025; 97110; 97116; 97161; 97165; 97530; 97535; 99100; A9270; C1776; J0690; J1100; J1170; J2250; J2405; J2704; J2795; J3010; J7120

== ENCOUNTER 2022-08-03 11:00 | Outpatient (RCR) | payer OTHER, SELFPAY ==
--- NOTE | 2022-06-11 14:36 | PT.OPE ---
PT [place] [facility] Eval PT [facility] Eval Start: 06/11/22 10:03 Freq: Status: Active Protocol: Document 06/11/22 10:29 LSL (Rec: 06/11/22 10:47 LSL [id number]) E-signed By Mary Veloz PT Physical Therapy Outpatient Evaluation Insurance Information Insurance Name Medicare B Insurance Information/Comments [employer] Medical Diagnosis R knee primary OA, pre-post op R TKA Treating Diagnosis pain, weakness, impaired ROM, impaired mobility Referring MD Pandya Subjective Subjective Pt. report she doesn't have a significant amount of pain, but a fair amount of joint range deficit that is impacting her ability to walk. PMH: L TKA 14 y/a, spinal surgery 2004 with resultant nerve damage in L leg, R DANIEL 2020 with femoral fracture 2 weeks after surgery Pain Comments 12/28 Date of Last Physician Visit 05/12/22 Date of Surgery (If applicable) 06/22/22 Current Work Status Retired Precautions Weight Bearing Status Full Weight Bearing Therapy Limitations/Systems Review Not Limited Objective Range of Motion AROM 0/25/124 Strength R quads 5-/5, HS 5/5 Swelling 2 above MP 41.5 cm joint line 38 cm 6 below MP 36.5 cm Balance & Gait impaired in SLB B L>R, impaired gait due to extension deficit causing R limb to be shorter. She lacks about 5 degrees on the L at baseline today and 25 on R. Assessment Assessment/Impression Pt. is a 72 y/o female who presents with significant ROM deficit, atrophy of the quads and gait impairment due to the ROM deficit before her knee surgery. She is familiar with joint replacement surgery and seems prepared and equipped to go through it again. She will benefit from PT to improve her ROM, decrease pain and swelling, improve her strength and ambulation ability using therex, manual therapy, NM re-ed, gait training and modalities prn. Primary Functional Limitations walking, stairs Plan of Care Rehabilitation Potential Excellent Physical Therapy Goals SHORT TERM GOALS: (2-3 weeks) 1. Pt. to have 100 degrees of flexion to assist in getting in and out of her car. 2. Pt. able to complete a QS to stabilize her leg when getting in and out of bed. 3. Pt. able to don/doff socks and shoes. 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 Pt. able to ambulate up to 1 mile with pain less than 2/ 10. 2. Pt. able to ascend and descend 12 stairs to move between floors in her home. 3. Pt. able to squat to get things out of low cabinets. Coordination/Communication With Referral Source Treatment Plan/Direct Interventions Electrical Stimulation,Ice/ Cold/Vasopneumatic,Joint Mobilization,Manual Therapy, Neuromuscular Re-ed,Self-Care/ Home Management,Therapeutic Exercises Frequency/Duration 2x/week 8 weeks Patient Will Be Discharged From Therapy Completion of LTG(s),Skills Plateau,Independent w/HEP, Independently Progressing Evaluation Billing Untimed Code Treatment Minutes 45 PT Eval No Charge No Complexity Low Certification Information Physician Comment/Change Comment or Changes Physician NPI Number #
== END 2022-08-25 09:20 | disposition home or self-care (01) ==
PROVIDERS: Visit Provider Orthopaedic Surgery Sports Medicine
DX: M17.11 Unilateral primary osteoarthritis, right knee (principal); Z51.89 Encounter for other specified aftercare
CPT/HCPCS: 97016; 97110; 97112; 97140; 97161; 97164

== ENCOUNTER 2023-03-09 09:10 | Outpatient (CLI) | payer OTHER, SELFPAY | END 2023-03-09 09:11 | disposition home or self-care (01) | PROVIDERS: PCP Family Medicine; Visit Provider Family Medicine | DX: M54.16 Radiculopathy, lumbar region (principal); M51.36 Other intervertebral disc degeneration, lumbar region | CPT/HCPCS: 64483; J1100; Q9966 ==

== ENCOUNTER 2023-06-01 09:08 | Outpatient (CLI) | payer OTHER, SELFPAY ==
--- OUTSIDE RECORDS SUMMARY | 2023-06-01 09:11 | XMS_ITS | Continuity of Care Document ---
Author Name Unknown Organization [facility] Address [address] [place] [address] Phone Care Team Providers Care Lye Machine Operator Name Role Phone Varsha Foreman MD Unavailable Unavailable Procedures Procedure Date OFFICE/OUTPATIENT VISIT EST Phone OFFICE/OUTPATIENT VISIT EST Phone OFFICE/OUTPATIENT VISIT EST Phone Advance Directives Directive Yes / No Effective Date File Name No Information Encounters Encounter Description Practice Location Reason(s) For Visit Diagnoses Date Provider Providers Copied on Encounter [facility], [address], [place], [place], [id number], [place] tel:[phone] [place] No Information hbmelinda Amir. [facility], [address] [place] [address], [id number], [place]. tel:[phone] OFFICE/OUTPAT IENT VISIT EST Phone [facility], [address], [place], [place], [id number], [place] tel:[phone] [place] No Information Ahsan Hawleyr. [facility], [address] [place] [address], [place], [place], [id number], [place]. tel:[phone] Referring Provider: Monster Mehta, [address] [place] [address], [place], [address] . tel:[phone] OFFICE/OUTPAT IENT VISIT EST Phone [facility], [address], [place], [id number], [place] tel:[phone] [facility] No Information Ahsan [facility], [address], [place], [id number], [place]. tel:[phone] Referring Provider: Monster Mehta, [address] [place] [address], [place], [address] . tel:[phone] OFFICE/OUTPAT IENT VISIT EST Phone [facility], [address], [place], [id number], [place] tel:[phone] [facility] No Information Ar[facility]. [address] [place] [address], [place], [id number], [place]. tel:[phone] Referring Provider: Monster Mehta, [address], [place], [address] . tel:[phone] Family History Family Member Type Diagnosis Age At Onset No Information Payers Payer name Insurance type Covered green party ID Authoriza tilevon(s) [employer] Medicare Gold Choice Magi SOLIS [id number] Social History Type Description Quantity Date Captured Comments Sex Female Smoking Status No Information Chief Complaint And Reason For Visit No Information Reason For Referral Reason For Referral No Information History Of Present Illness Encounter Date Complaint History Of Prese nt Illness No Information Functional Status Date Functional Assessmen t No Information Instructions Date Instruction Additional Infor mation No Information Assessments Type Assessment Date No Information Patient Care Teams Name Effective Dates (start - stop) Status Members No Information
--- OUTSIDE RECORDS SUMMARY | 2023-06-01 09:11 | XMS_ITS | Continuity of Care Document ---
Author Name Unknown Organization [facility] enter Address [address] [place] [address] Phone Care Team Providers Care Inbound Ingredient Logistics Specialist Name Role Phone [facility] Unavailable Unava ilable Procedures Procedure Date INJ FORAMEN EPIDURAL L/S INJ FORAMEN EPIDURAL L/S INJ FORAMEN EPIDURAL L/S INJ FORAMEN EPIDURAL L/S INJ FORAMEN EPIDURAL L/S INJ FORAMEN EPIDURAL L/S INJ FORAMEN EPIDURAL L/S Advance Directives Directive Yes / No Effective Date File Name No Information Encounters Encounter Description Practice Location Reason(s) For Visit Diagnoses Date Provider Providers Copied on Encounter [facility], [address] [place] [address], [id number], tel:[phone] [place] [address] No Information 2 [facility]. [address] [place] [address], [id number], [place]. tel:[phone] Referring Provider: Giuliano Egan [address], [place], [address]. tel:[phone] [facility], [address] [place] [address], [id number], tel:[phone] [place] [address] No Information [facility]. [address] [place] [address], [id number], [place]. tel:[phone] Referring Provider: Giuliano Egan [facility] [address], [place], [address]. tel:[phone] [facility], [address] [place] [address], [id number], tel:[phone] [place] [address] No Information [facility]. [address] [place] [address], [id number], . tel:[phone] Referring Provider: Giuliano Egan, [facility] [address] [facility] [address], [place], [address]. tel:[phone] [facility], [address] [place] [address], [id number], tel:[phone] [place] [address] No Information [facility]. [address] [place] [address], [id number], . tel:[phone] Referring Provider: Giuliano Egan, [facility] [address] [facility] [address], [place], [address]. tel:[phone] Family History Family Member Type Diagnosis Age At Onset No Information Payers Payer name Insurance type Covered green party ID Authoriza tion(s) [employer] Medicare PPO Replacement 16 [id number] Social History Type Description Quantity Date Captured [...]
--- OUTSIDE RECORDS SUMMARY | 2023-06-01 09:11 | XMS_ITS | Continuity of Care Document ---
Author Name Unknown Organization [facility] Address 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 Name Role Phone Giuliano Egan MD Unavailable Unavailable Allergies, Adverse Reactions, Alerts Substance Reaction Status Criticality No Known Allergies Active No Inform ation Medications Medication Instructions Dosage Effective Dates (start - stop) Status Comments lisinopril 10 mg tablet take 1 tablet by oral route every day 10 MG - Active Lipitor 40 mg tablet take 1 tablet by oral route every day 40 MG - Active allopurinol 300 mg tablet take 1 tablet by oral route every day 300 MG - Active CLARITIN (unknown strength) take 1 tablet by oral route every day Not Available - Active Procedures Procedure Date INJ FORAMEN EPIDURAL L/S BILATERAL OFFICE/OUTPATIENT VISIT, EST OFFICE/OUTPATIENT VISIT, EST INJ FORAMEN EPIDURAL L/S BILATERAL May- INJ FORAMEN EPIDURAL L/S BILATERAL OFFICE/OUTPATIENT VISIT, EST INJ FORAMEN EPIDURAL L/S BILATERAL OFFICE/OUTPATIENT VISIT, EST OFFICE/OUTPATIENT VISIT, NEW Advance Directives Directive Yes / No Effective Date File Name No Information Encounters Encounter Description Practice Location Reason(s) For Visit Diagnoses Date Provider Providers Copied on Encounter [facility], [address] [place], [id number] , [place] tel:[phone] [facility] Radiculopathy, lumbar region 2 [facility]. [facility], [address], [place], [address], [place]. tel:[phone] Referring Provider: Chaim Prajapati, [facility] [address], [place], [address]. tel:[phone] OFFICE/OUTPA TIENT VISIT, [facility], [address] [place], [place], [id number] , [place] tel:[phone] [facility] Back Pain (chief complaint) Pain in right hipPain in left hipSpinal stenosis, lumbar region with neurogenic claudicationRadic ulopathy, lumbar regionPostlaminec nia syndromeOther [employer] (current) drug therapy May-0 2 Egan Giuliano. [facility], [address], [place], [address], [place]. [phone] Referring Provider: Chaim Prajapati, [facility] [address], [address], [place], [address]. [phone] OFFICE/OUTPA TIENT VISIT, [facility], [address] [place], [place], [id number] , [place] [phone] [facility] Back Pain (chief complaint) Radiculopathy, lumbar regionPostlaminec nia syndromePain in right hipPain in left hipOther [employer] (current) drug therapySpinal stenosis, lumbar region with neurogenic claudication Sep-2 1 Egan Giuliano. [facility], [address], [place], [address], [place]. [phone] Referring Provider: Chaim Prajapati, [facility] [address], [place], [address]. tel:[phone] [facility], [address] [place], [place], [id number] , [place] [phone] [facility] Radiculopathy, lumbar region Sep-0 - 1 Egan Giuliano. [facility], [address], [place], [address], [place]. [phone] Referring Provider: Chaim Prajapati, [facility] [address], [place], [address]. tel:[phone] [facility], [address] [place] [address], [id number] , [place] tel:[phone] [facility] [place] Radiculopathy, lumbar region 1 Egan Giuliano. [facility], [address], [place], [address], [place]. tel:[phone] [facility], [address] [place] [address], [id number] , [place] tel:[phone] [facility] Radiculopathy, lumbar region 1 Egan Giuliano. [facility], [address], [place], [address], [place]. tel:[phone] Referring Provider: Chaim Prajapati, [facility] [address], [place], [address]. [phone] OFFICE/OUTPA TIENT VISIT, EST [facility], [address] [place] [address], [id number] , [place] tel: [phone] [facility] [place] Back Pain (chief complaint) Postlaminectomy syndromePain in right hipRadiculopathy, lumbar regionPain in left hipOther [employer] (current) drug therapy 1 Egan Giuliano. [facility], [address], [place], [address], [place]. tel:[phone] Referring Provider: Chaim Prajapati, [facility] [address], [place], [address]. tel:[phone] [facility], [address] [place] [address], [id number] , [place] tel:[phone] [facility] Radiculopathy, lumbar region Dec-2 1 Egan Giuliano. [facility], [address], [place], [address], [place]. [phone] Referring Provider: Chaim Prajapati, [facility] [address], [place], [address]. [phone] OFFICE/OUTPA TIENT VISIT, [facility], [address] [place], [place], [id number] , [place] tel: [phone] [facility] Back Pain (chief complaint) Postlaminectomy syndromePain in right hipRadiculopathy, lumbar regionPain in left hipOther half-way (current) drug therapy 1 Egan Giuliano. [facility], [address], [place], [address], [place]. tel: [phone] Referring Provider: Chaim Prajapati, [facility] [address], [place], [address]. tel:[phone] OFFICE/OUTPA TIENT VISIT, [facility], [address] [place], [place], [id number] , [place] tel:[phone] [facility] Back Pain (chief complaint) Postlaminectomy syndromePain in right hipRadiculopathy, lumbar regionPain in left hipOther superintendent [employer] (current) drug therapy 1 Egan Giuliano. [facility], [address], [place], [address], [place]. tel: [phone] Referring Provider: Chaim Prajapati, [facility] [address], [place], [address]. tel:[phone] [facility], [address], [place], [id number] , [place] tel:[phone] [facility] [place] No Information 1 Egan Giuliano. [facility], [address], [place], [address], [place]. tel: [phone] Family History Family Member Type Diagnosis Age At Onset No Information Payers Payer name Insurance type Covered constitution party ID Authoriza tilevon(s) [employer] Medicare PPO Replacement [id number] Social History Type Description Quantity Date Captured Comments Sex Female Smoking Status No Information Chief Complaint And Reason For Visit No Information Reason For Referral Reason For Referral No Information Plan Of Treatment Date Type Action Status Goal CT-Colonography. Due on due Goal Review Allergy List. Due on due Goal Unhealthy drug use screening . Due on due Goal FIT-DNA. Due on due Goal Hepatitis C screening. Due o n due Goal PHQ-9. Due on du e Goal Zoster vaccine (). Due on due Goal Update Social History. Due o n due Goal Lipid panel. Due on due Goal Weight. Due on d ue Goal FIT. Due on due Goal Height. Due on d ue Goal Medication Reconciliation. D ue on due Goal Tobacco Use. Due on due Goal Medication Reconciliation. D ue on due Goal Update Social History. Due o n due Goal PHQ-9. Due on du e Goal Height. Due on d ue Goal Tobacco Use. Due on due Goal Weight. Due on d ue Goal Review Allergy List. Due on due Goal PHQ-9. Due on du e Goal Medication Reconciliation. D ue on due Goal Weight. Due on d ue Goal Tobacco Use. Due on due Goal Height. Due on d ue Goal Update Social History. Due o n due Goal Review Allergy List. Due on due Goal Medication Reconciliation. D ue on due Goal PHQ-9. Due on du e Goal Update Social History. Due o n due Goal Height. Due on d ue Goal Tobacco Use. Due on due Goal Weight. Due on d ue Goal Review Allergy List. Due on due Referral Ordered: Elizabeth Hennessy -[facility] : Family Medicine (related to Radiculopathy, lumbar region) ordered Referral Referred To: Elizabeth Hennessy [facility]
[address] [place], [phone] Ordered: Referrals: [facility] : Family Medicine. Elizabeth Hennessy ordered History Of Present Illness Encounter Date Complaint History Of Prese nt Illness Comments: Mrs. Geronimo whitehead is a pleasant 71 y/o woman who presents to clinic for follow-up regarding low back pain (L=R) in the setting of a complex lumbar surgical history. Denies radiation into the legs while standing or walking, with some radiation into the posterior thighs while laying down. Secondarily c/o of numbness in the left lower leg, which has persisted following her surgeries.She would prefer to avoid surgery. No other concerns today. Back Pain Severity level i s 5. Duration: chronic. The problem is worsening. It occurs persistently. Location of pain is lower back. The client describes the pain as an ache and sharp. Symptoms are aggravated by bending, lifting, standing and walking. Symptoms are relieved by lying down, rest, sitting and changing positions. Back Pain Severity level i s 6. Duration: chronic. The problem is worsening. It occurs intermittently. The patient describes the pain as an ache and sharp. Symptoms are aggravated by lying/rest, walking and prolonged positioning. Symptoms are relieved by rest, sitting and changing positions. Back Pain (comments) Mrs. Kirstin bustos is a pleasant 71 y/o female who presents to clinic for follow-up regarding low back pain, non-radiating. S/p multiple back surgeries, including left sided L4-5, L5-S1 decompression. She describes occasional numbness in left L5/S1 distribution caused by one of the surgeries, but no pain or weakness. She endorses that she sometimes has to lean over on the shopping cart when she is shopping.S/p BL L5-S1 TFESI on 05/21/[address] Giuliano Walters with minimal benefit. Previously did a BL L3 TFESI with good results.She endorses new cramping and spasms in her BL hip/gluteal area, especially when sleeping. Also notes difficulty with walking long distances and needs to lean forward on shopping cart when in a store.She states she always has some numbness in her L thigh but will be following up with neurology next week and will continue to f/u with PT at [facility]. No other concerns today. Back Pain Severity level i s 7. Duration: chronic. The problem is fluctuating. It occurs persistently. Location of pain is lower back.The patient describes the pain as an ache. Symptoms are aggravated by lifting, standing, walking, housework and movement. Symptoms are relieved by lying down and sitting. Back Pain (comments) Mrs. Kirstin bustos is a pleasant 70 y/o female who presents to clinic for follow-up regarding low back pain, non-radiating. S/p multiple back surgeries, including left sided L4-5, L5-S1 decompression. Her most recent surgery was in 2006. She describes occasional numbness in left L5/S1 distribution caused by one of the surgeries, but no pain or weakness. S/p KUSUM L3-4 TFESI on 01/07/21 without complication and significant relief. She says that her higher back pain is completely resolved. She continues to struggle with back pain at the lumbosacral junction and inquires if another DEBRA would help. She denies radicular symptoms but recalls a right DANIEL and subsequent fracture that is also bothersome. No other concerns today. Back Pain (comments) Franny is here for a followup after initial consult. Low back pain is worse. The pain is aggravated by walking for extended periods of time. Leaning forward often helps relieve the pain temporarily. Denies any leg pain since her lumbar decompression surgery. She will be traveling to [place] in 5 weeks and is interested in injections she could complete before she leaves for relief on her trip.She completed a right hip replacement. Later her femur fractured, no surgery indicated.No other concerns today. Back Pain Severity level i s 8. Duration: chronic. The problem is worsening. It occurs persistently. Location of pain is lower back.The patient describes the pain as an ache. Symptoms are aggravated by standing and walking. Symptoms are relieved by lying down. Back Pain Onset: sudden wi th injury. Severity level is 5. Duration: chronic. The problem is worsening. It occurs persistently. Location of pain is lower back. Pain is radiated to the left foot.The patient describes the pain as an ache.The patient denies aggravating factors. Symptoms are relieved by lying down and rest. Back Pain (comments) Mrs. Kirstin bustos is a pleasant 70 y/o female who presents to clinic for initial consult following referral from Dr. Anusha Prajapati regarding chronic low back and hip pain and numbness in her left foot. She describes that her pain began after a back surgery where they were trying to correct a herniated disc (hx L4-5 and L5-S1 left sided decompressions on imaging). She claims to have a pinched nerve and she believes this is the cause of numbness in her left foot. She reports pain across her low back. She rates her pain as a 5/10 and describes it as achy and numbness. Her most recent surgery was in 2006. Since then, she has developed numbness in her left foot. She describes it as tingling in all of her toes. She is able to walk but notes that she loses her balance easily. She reports her first back surgery was in the 80s when she had pain shooting down her legs, which has since ceased. She reports ESIs before her surgeries, but she does not believe they were beneficial. She has also been having KUSUM hip pain and is having her right hip replaced in [address] Chivo Rivero. She has received right hip joint and hip bursa injections. She notes that her hip hurts the most when she walks. She is currently going to physical therapy and reports that it is beneficial. She notes MRI and x-ray imaging at [facility] in August 2019. She reports taking #3 naproxen every day, and says it is not helpful. She is interested in establishing care with [facility]. No other concerns today. Functional Status Date Functional Assessmen t No Information Instructions Date Instruction Additional Infor tae No Information Assessments Type Assessment Date No Information Patient Care Teams Name Effective Dates (start - stop) Status Members No Information
== END 2023-06-01 09:09 | disposition home or self-care (01) ==
LOC: INJ CL 09:09
PROVIDERS: PCP Family Medicine; Visit Provider Family Medicine
DX: M54.16 Radiculopathy, lumbar region (principal); M51.36 Other intervertebral disc degeneration, lumbar region
CPT/HCPCS: 64483; J1100; Q9966

== ENCOUNTER 2024-12-04 09:27 | Outpatient (CLI) | payer MEDICARE, SELFPAY | END 2024-12-04 09:28 | disposition home or self-care (01) | LOC: AMB 12-05 10:29 | PROVIDERS: PCP Family Medicine; Visit Provider Family Medicine | DX: S02.85XA Fracture of orbit, unspecified, initial encounter for closed fracture (principal) | CPT/HCPCS: A0425; A0427 ==

== ENCOUNTER 2025-05-01 16:30 | Outpatient (RCR) | payer MEDICARE, SELFPAY | END 2025-08-29 23:59 | disposition home or self-care (01) | PROVIDERS: PCP Family Medicine; Visit Provider Family Medicine | DX: R42 Dizziness and giddiness (principal); F07.81 Postconcussional syndrome; Z51.89 Encounter for other specified aftercare | CPT/HCPCS: 97112; 97140; 97161 ==